=== PATIENT | female | born 1975 | race Caucasian/White ===

== ENCOUNTER 2024-11-12 08:45 | Outpatient (RCR) | payer OTHER, SELFPAY ==
[2024-10-24 12:10] VITALS: BMI 32.2
[2024-10-24 12:11] VITALS: BP 100/70; PULSE 60; TEMP 36.8
--- NOTE | 2024-10-24 13:49 | PC.ADMIT ---
Patient is a 49 year old partnered female who was referred to [facility] by her therapist d/t increased depression, anxiety, PTSD, and medical trauma. Patient reports she was dx with Long Covid and is receiving treatment at [facility] every three months seeing different specialist. She has also been diagnosed with autoimmune disorder- dysautonomia. She reports attending 2 online groups with others who struggle with Long Covid. 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 She reports having over 30 eye surgeries. Patient reports HX of aseptic meningitis x6 when she was receiving IVIG therapy. Patient reports relationship issues with her partner. They have been going to couples counseling. Patient reports recent loss of partners mother 2 weeks ago which brought up feelings from the loss of her own mother who passed and whom she was unable to see d/t Covid. Patient is alert and oriented x4. She is calm and cooperative. Thoughts are clear and logical. She presented with depressed mood and anxious affect. Regarding SI she reports having passive thoughts, I don't have any plans just thoughts things would be better . She denied any plans or intention to kill herself. She was given a copy of her safety plan if needed. Medications reconciled with patient and patient's pharmacy. She reports taking her medications as prescribed.
--- NOTE | 2024-10-25 15:11 | HO.PHP ---
Client's case was opened and reviewed in teams today.
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
--- NOTE | 2024-11-02 11:58 | HO.PHPPROGNO ---
Subjective Subjective Date of Service: 11/02/24 Reason For Visit: CPTSD Interim History: Patient seen for follow up. Reports having a lot of depression which is tired up with housing instability and concerns about losing 1/3 of her disability because her child will be turning 18 soon. Conveys that despite having a brave face she says she is really struggling and that she is good at masking in front of people they have no idea how depressed I am. WHen I am alone especially, that's when I get stuck in cycles of overthinking, perseverating, paralysis by analysis, I'm overthinking everything...makes it hard to do anything and everything that would probably help me get out of this very dark place. Talks about being a kid growing up as a queer kid and not quite fitting in in her more traditional community. Being blind forces me to be a consumer, I dont produce or create. I have a lot of guilt about this stuff. I have to depend on other people and systems to get my needs met . Talks about some of the moral dilemmas and feeling disempowered yet feeling she must recognize her privilege compared to others. She feels a lot of her depression is tied up in the cognitions and thought loops, the impairment definitely contributes to the depression, and perhaps more so than the depression causing the impairment. Medication Compliance: Yes Side effects from medications: No Attending Groups: Yes Review of Systems Acute medical concerns: No Mental Status Exam Mental Status Exam Narrative: Alert, oriented, in no acute distress. Calm, cooperative, engaged, pleasant, well-related. WEll-groomed, No psychomotor agitation or neurovegetative retardation. Eye contact approximate (patient is most blind in L) R eye patch. Mood depressed, affect brighter than expected, no lability, irritability or tearfulness. Speech normal. Thought process linear, coherent. Thought content related to stressors, transient helplessness and hopelessness, morbid ruminations, passive SI without true intention, urge or plan. Denies SIB thoughts or behaviors. Denies any aggressive ideation or HI. No paranoia or delusional content elicited. No evidence of psychosis. Insight intact and judgment - fair-good Diagnostics Vital Signs (24Hr): BMI result Body Mass Index 32.2 Assessment & Plan Assessment & Plan (1) MDD (major depressive disorder), recurrent severe, without psychosis: Status: Acute Code(s): F33.2 - Major depressive disorder, recurrent severe without psychotic features (2) MARICARMEN (generalized anxiety disorder): Status: Acute Code(s): F41.1 - Generalized anxiety disorder (3) Post traumatic stress disorder (PTSD): Status: Acute Code(s): F43.10 - Post-traumatic stress disorder, unspecified (4) Cognitive attention deficit: Status: Acute Code(s): R41.840 - Attention and concentration deficit Assessment and Plan: cognitive and executive dysfunction (multifactoral) Plan Continue PHP start Vyvanse 10 mg qam (will limit to 3x/wk) start guanfacine ER 1 mg qam PRN anxiety will plan to start ABilify 1-2 mg next week once we get sense of how/whether Vyv affects mood, anxiety continue ci continue other regular medications? discussed other non-stimulant options as well, patient interested in trialing Vyvanse, risks, benefits, side effects reviewed Routine lab work ordered as indicated EKG, routine for baseline QTc for medication considerations as indicated UDS as indicated MassPat reviewed Continue to monitor as per protocol Patient educated on: diagnosis and medication risk/benefits Informed Consent: understands Reason for contiued partial hosp. stay Substantial Risk for: inability to function and med/psych decompensation Certification I certify that partial hospital treatment is medically necessary due to the symptoms and problems resulting from the patient's mental illness and the failure to treat the patient at the partial hospital level of care would likely result in the patient requiring inpatient psychiatric care which could not be prevented at a less intensive level of care. Total time managing care of this patient today __30__ minutes. Discharge Plan Discharge Attending provider: Amparo Easley Medications: New lisdexamfetamine 10 mg capsule 10 mg PO QAM Qty: 14 0RF Rx Instructions: Partial Fill upon patient request. guanfacine 1 mg tablet extended release 24 hr 1 mg PO DAILY Qty: 14 0RF aripiprazole 2 mg tablet 2 mg PO BEDTIME Qty: 14 0RF No Action citalopram 40 mg tablet 40 mg PO DAILY hydroxyzine HCl 25 mg tablet 25 mg PO BEDTIME clonazepam 1 mg Tablet 0.5 - 1 mg PO BEDTIME PRN (Reason: Severe Anxiety) Rx Instructions: Last Filled 10/31/23 #28. naltrexone 1.5 mg Capsule 6 mg PO DAILY Rx Instructions: Patient takes 4.5 and 1.5 mg capsule for total dose 6mg daily. Stand Alone Forms: Patient Portal Discharge page Print Language: Swazi
--- NOTE | 2024-11-09 12:59 | HO.PHPPROGNO ---
Subjective Subjective Date of Service: 11/09/24 Reason For Visit: CPTSD Interim History: Patient seen for follow-up. She reports noticing immediate effects from the Vyvanse. Even at 10 mg she reports the effects are ?strong , however she says she feels that this is not necessarily a bad thing. She feels that it benefitted her with feeling more present and more connected to her own feelings and thoughts. ?I think this is the right strategy I think it just needs some fine tuning?. She reportedly feels fine on the medication, both physically and mentally, however she notices as it wears off in the afternoon she starts feeling ?wired? and a little ?hyped up?. She attributes this to some of the restlessness and anxiety getting displaced while she is on the Vyvanse and that this starts coming back as the medication wears off. She has not started ER as of yet nor has she started on Abilify but is agreeable to starting both respectively in the morning and evening. She asks about increasing the dose to 20 mg however for now we will hold off at 10 mg and will focus on starting on guanfacine and mood stabilizer. She reports she has been sleeping well and waking up in the morning rested. She is looking for refill on her clonazepam and continues on her other medications including citalopram 40 mg. Denies any hopelessness, SI. Aside from some described activation she does not have any other evidence of hypomanic or manic symptoms. Appetite is intact. She is coherent organized and mood is stable. Mental Status Exam Mental Status Exam Narrative: Alert, oriented, in no acute distress. Calm, cooperative, engaged, pleasant, well-related. WEll-groomed, No psychomotor agitation or neurovegetative retardation. Eye contact approximate (patient is most blind in L) R eye patch. Mood depressed, affect brighter than expected, no lability, irritability or tearfulness. Speech normal. Thought process linear, coherent. Thought content related to stressors, transient helplessness and hopelessness, morbid ruminations, passive SI without true intention, urge or plan. Denies SIB thoughts or behaviors. Denies any aggressive ideation or HI. No paranoia or delusional content elicited. No evidence of psychosis. Insight intact and judgment - fair-good Diagnostics Vital Signs (24Hr): BMI result Body Mass Index 32.2 Assessment & Plan Assessment & Plan (1) MDD (major depressive disorder), recurrent severe, without psychosis: Status: Acute Code(s): F33.2 - Major depressive disorder, recurrent severe without psychotic features (2) MARICARMEN (generalized anxiety disorder): Status: Acute Code(s): F41.1 - Generalized anxiety disorder (3) Post traumatic stress disorder (PTSD): Status: Acute Code(s): F43.10 - Post-traumatic stress disorder, unspecified Plan Continue PHP cont Vyvanse 10 mg qam (will limit to 3x/wk) start guanfacine ER 1 mg qam start ABilify 1-2 mg qhs continue citalopram 40 mg qhs continue hydroxyzine 25 mg qhs sleep continue LDN/naltrexone 6 mg qd continue clonazepam 0.5 - 1 mg qhs PRN anxiety continue other regular medications? discussed other non-stimulant options as well, patient interested in trialing Vyvanse, risks, benefits, side effects reviewed Routine lab work, UDS, EKG as indicated Continue to monitor Patient educated on: diagnosis and medication risk/benefits Informed Consent: understands Reason for contiued partial hosp. stay Substantial Risk for: med/psych decompensation Certification I certify that partial hospital treatment is medically necessary due to the symptoms and problems resulting from the patient's mental illness and the failure to treat the patient at the partial hospital level of care would likely result in the patient requiring inpatient psychiatric care which could not be prevented at a less intensive level of care. Total time managing care of this patient today _30___ minutes. Discharge Plan Discharge Attending provider: Amparo Easley Medications: New lisdexamfetamine 10 mg capsule 10 mg PO QAM Qty: 14 0RF Rx Instructions: Partial Fill upon patient request. guanfacine 1 mg tablet extended release 24 hr 1 mg PO DAILY Qty: 14 0RF aripiprazole 2 mg tablet 2 mg PO BEDTIME Qty: 14 0RF Continued citalopram 40 mg tablet 40 mg PO DAILY hydroxyzine HCl 25 mg tablet 25 mg PO BEDTIME naltrexone 1.5 mg Capsule 6 mg PO DAILY Rx Instructions: Patient takes 4.5 and 1.5 mg capsule for total dose 6mg daily. clonazepam 1 mg Tablet 0.5 - 1 mg PO BEDTIME PRN (Reason: Severe Anxiety) Qty: 14 0RF Rx Instructions: Last Filled 10/31/23 #28. Stand Alone Forms: Patient Portal Discharge page Print Language: Cymraes
--- NOTE | 2024-11-12 20:20 | HO.PHPPROGNO ---
Subjective Subjective Date of Service: 11/12/24 Reason For Visit: CPTSD Medication Compliance: Yes Side effects from medications: No Attending Groups: Yes Review of Systems Acute medical concerns: No Diagnostics Vital Signs (24Hr): BMI result Body Mass Index 32.2 Assessment & Plan Certification I certify that partial hospital treatment is medically necessary due to the symptoms and problems resulting from the patient's mental illness and the failure to treat the patient at the partial hospital level of care would likely result in the patient requiring inpatient psychiatric care which could not be prevented at a less intensive level of care. Total time managing care of this patient today ____ minutes. Discharge Plan Discharge Attending provider: Amparo Easley Medications: New lisdexamfetamine 10 mg capsule 10 mg PO QAM Qty: 14 0RF Rx Instructions: Partial Fill upon patient request. guanfacine 1 mg tablet extended release 24 hr 1 mg PO DAILY Qty: 14 0RF aripiprazole 2 mg tablet 2 mg PO BEDTIME Qty: 14 0RF citalopram 20 mg tablet 20 mg PO DAILY Qty: 30 0RF Continued hydroxyzine HCl 25 mg tablet 25 mg PO BEDTIME naltrexone 1.5 mg Capsule 6 mg PO DAILY Rx Instructions: Patient takes 4.5 and 1.5 mg capsule for total dose 6mg daily. clonazepam 1 mg Tablet 0.5 - 1 mg PO BEDTIME PRN (Reason: Severe Anxiety) Qty: 14 0RF Rx Instructions: Last Filled 10/31/23 #28. Discontinued citalopram 40 mg tablet 40 mg PO DAILY Stand Alone Forms: Patient Portal Discharge page Print Language: Moldovan
== END 2024-11-12 23:59 | disposition home or self-care (01) ==
LOC: HO.PHPA 08:45
PROVIDERS: Visit Provider Psychiatry & Neurology Psychiatry
DX: F33.2 Major depressive disorder, recurrent severe without psychotic features (principal); F41.1 Generalized anxiety disorder; F43.10 Post-traumatic stress disorder, unspecified; R41.840 Attention and concentration deficit; Z79.899 Other long term (current) drug therapy
CPT/HCPCS: 90791; 90853

== ENCOUNTER 2025-05-08 13:00 | Outpatient (RCR) | payer OTHER, SELFPAY ==
[2025-05-07 13:16] VITALS: BMI 28.5
[2025-05-07 13:17] VITALS: BP 104/62; PULSE 68; TEMP 37.1
--- NOTE | 2025-05-07 15:54 | PC.ADMIT ---
Patient is a 50 year old recently single female who was referred to [facility] by her therapist d/t sxs of depression and anxiety. Patient reports stresses including break up with her partner of 6 years who abruptly broke up with her in December along with being legally blind and living alone for the first time in her life. She reports her daughter just moved out to the [facility]. Patient stated she moved out of her home of 6 years and is not living in an apartment. Supports per patient, My friends, I have quite a few good friends they have been really supportive. Patient is alert and oriented x4. She is calm and cooperative. Thoughts are logical and clear. She presented with depressed mood and affect. She reports passive thoughts that she does not want to be here anymore. She denied any plans of intention of killing herself. She was given a copy of her safety plan if needed. Medications reconciled with patient and patient's pharmacy. She reports she is taking medications as prescribed. Patient has a history of chronic pain however reports that she is doing really well with pain management and is able to walk up to 10 miles in a day and has been walking every day. Stated she was able to get off all of her pain medication with the exception of low dose Naltrexone.
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
--- NOTE | 2025-05-09 09:03 | HO.PHP ---
PHP admin, Sonja, informed the team that Desirae will not be in attendance to program today because she forgot about an appointment that she had scheduled prior to starting the program.
--- NOTE | 2025-05-09 15:19 | HO.PHP ---
Client's case was opened and reviewed in teams.
--- NOTE | 2025-05-10 08:05 | HO.PHP ---
PHP admin, Sonja, informed the team that Desirae is not scheduled on Tuesday' due to having her home health aid come for an appointment.
--- NOTE | 2025-05-10 14:06 | HO.PHP ---
[facility] admin, Sonja, informed the team that Desirae contacted the program stating that we could call Tessie, her emergency contact for any further information on what is occurring with her hospitalization. PHP staff member did reach out to Tessie but she did not answer, a voicemail was left inquiring about Desirae. PHP staff member is awaiting on a phone call back.
--- NOTE | 2025-05-10 14:34 | HO.PHP ---
PHP staff member spoke to Desirae's Emergency Contact Tessie, who had noted that Desirae had tried to take her life last night, in which she took a bunch of pills (Klonopin, oxy, and tylenol). Desirae is currently admitted at [facility], in which she is in medical observation at this time and will be detoxing until 6 PM. Tessie noted they are actively searching for a bed to place her inpatient. [facility] staff explored how she was able to get to the hospital. Tessie voiced that she stopped by yesterday and when she was there, Desirae was dysregulated throwing items, breaking items, banging her head on the wall. Therefore, Tessie called one of Desirae's friends to make sure that she was okay. When they asked her how many pills she took she claim one but was sleeping and when Tessie told the friend to wake her up, she didn't seem well so Tessie encouraged the friend to take her to the hospital. [facility] staff member thanked Tessie for providing that information and noted that once Desirae is done with inpatient she can step down to [facility] again and continue in our program. Tessie did ask if we can help with aftercare planning. PHP staff said when she returns we can and then said will you be calling inpatient. PHP staff noted that we do not contact inpatient. Tessie is worried about what will happen after she discharges from inpatient. [facility] staff suggested that she is apart of the discharge planning with inpatient through [facility] and see if there are more intense services that could be provided to Desirae as a step down. Tessie appeared receptive.
== END 2025-05-08 23:59 | disposition admitted as inpatient to this hospital (09) ==
LOC: HO.PHPA 13:00
PROVIDERS: Visit Provider Psychiatry & Neurology Psychiatry
DX: F33.2 Major depressive disorder, recurrent severe without psychotic features (principal); F41.1 Generalized anxiety disorder; F43.10 Post-traumatic stress disorder, unspecified; Z79.899 Other long term (current) drug therapy
CPT/HCPCS: 90791; 90853

== ENCOUNTER → 2025-05-08 13:00 | Outpatient (BNV) | payer OTHER, SELFPAY | PROVIDERS: Visit Provider Nurse Practitioner Family | DX: F33.2 Major depressive disorder, recurrent severe without psychotic features (principal); F41.1 Generalized anxiety disorder; F43.10 Post-traumatic stress disorder, unspecified | CPT/HCPCS: 90792 ==